=== PATIENT | male | born 1960 | race Caucasian/White ===

== ENCOUNTER 2017-09-22 08:25 | Emergency (ER) | payer BC ==
[~2017-09-22] VITALS: Ht 182.9 cm; Wt 80.8 kg
[~2017-09-22 08:25] MED LIST: ASPIR 8181 M1 PO; Aspirin E.C. PO; LISINOPRIL-HCT1 EAC3 PO; LO-DOSE ASPIRIN81 M2 PO; LOPRESSOR25 MG PO; Lopressor PO; METOPROLOL SUCC25 MG PO; NOHOMEMEDS; NORVASC5 MG PO; Norvasc PO; PANTOPRAZOLE SO40 MG PO; RANITIDINE HCL300 M1 PO; SERTRALINE HCL50 MG PO; TOPROL XL50 MG PO; TYLENOL REGULA325 MG PO
[2017-09-22] MEDS ORDERED: BENADRYL50 MG PO (10:11)
[2017-09-22] MEDS ORDERED: MEDROL DOSEPAK4 MG PO (10:11)
[2017-09-22] MEDS ORDERED: PEPCID20 MG PO (10:11)
[2017-09-22 10:42] VITALS: BP 142/60
== END 2017-09-22 10:42 | disposition home or self-care (01) ==
LOC: EME 08:25
DX: L50.9 Urticaria, unspecified (principal)
CPT/HCPCS: 99281; 99284; J7512; Q0177

== ENCOUNTER 2017-11-03 01:48 | Observation (INO) | payer BC ==
[~2017-11-03] VITALS: Ht 182.9 cm; Wt 77.0 kg
[~2017-11-03 01:48] MED LIST changes: +BENADRYL50 MG PO; +MEDROL DOSEPAK4 MG PO; +PEPCID20 MG PO
[2017-11-03 02:22] LABS: HEMOGLOBIN 13.9 G/DL (12.5-16.6); MCH 30.1 PG (29.0-34.0); MCHC 35.6 G/DL (30.0-36.0); MCV 84.4 FL (86-99); PLATELET COUNT 178 K/uL (156-360); RBC DIS.WIDTH-CV 12.5 % (11.8-14.6); RBC DIS.WIDTH-SD 38.1 % (39-53); RED BLOOD COUNT 4.62 M/uL (4.00-5.50); WHITE BLOOD COUNT 8.1 K/uL (4.1-10.2)
[2017-11-03 02:29] LABS: ALBUMIN 4.2 g/dL (3.2-4.8)
[2017-11-03 02:30] LABS: CHLORIDE 102 mEq/L (99-109); POTASSIUM 3.7 mEq/L (3.7-5.4); SODIUM 135 mEq/L (136-147)
[2017-11-03 02:32] LABS: GLUCOSE 118 mg/dL (70-99); TOTAL PROTEIN 6.8 g/dL (6.4-8.3)
[2017-11-03 02:34] LABS: TOTAL BILIRUBIN 0.3 mg/dL (0.0-1.0)
[2017-11-03 02:35] LABS: ALKALINE PHOSPHATASE 74 IU/L (3-129)
[2017-11-03 02:36] LABS: GFR ESTIMATE (CALCULATED) > 59 mL/min/ (58.99-99999)
[2017-11-03 02:37] LABS: AST (GOT) 15 IU/L (2-34); UREA NITROGEN (BUN) 14 mg/dL (9-23)
[2017-11-03 02:39] LABS: ALT (GPT) 16 IU/L (3-49); LIPASE 60 U/L (1.0-51.0)
[2017-11-03 02:45] LABS: TROP-I INTERPRETATION NEGATIVE; TROPONIN-I < 0.01 ng/mL (0.0-0.30)
[2017-11-03 07:54] VITALS: BP 122/80
[2017-11-03 08:47] LABS: TROP-I INTERPRETATION NEGATIVE; TROPONIN-I 0.01 ng/mL (0.0-0.30)
[2017-11-03] MEDS ORDERED: GABAPENTIN300 MG PO (13:14)
[2017-11-03 15:06] LABS: TROP-I INTERPRETATION NEGATIVE; TROPONIN-I < 0.01 ng/mL (0.0-0.30)
== END 2017-11-03 16:04 | disposition home or self-care (01) ==
LOC: EME → EDBD 01:48 → EDOF 05:30 → ENRESERV 05:31 → 4SOUTH 07:44
PROVIDERS: Emergency Medicine; Internal Medicine
PROC: B246ZZZ Ultrasonography of Right and Left Heart (ICD-10-PCS; principal; 2017-11-03)
DX: R07.9 Chest pain, unspecified (principal); I10 Essential (primary) hypertension; R20.0 Anesthesia of skin; F80.9 Developmental disorder of speech and language, unspecified; I27.20 Pulmonary hypertension, unspecified; Z80.0 Family history of malignant neoplasm of digestive organs; Z80.1 Family history of malignant neoplasm of trachea, bronchus and lung; Z79.82 Long term (current) use of aspirin; Z87.891 Personal history of nicotine dependence
CPT/HCPCS: 71045; 72141; 80053; 83690; 84484; 85027; 93005; 93306; 99281; 99285; G0378; J1644